=== PATIENT | female | born 1925 | race Caucasian/White ===

== ENCOUNTER 2016-12-19 11:06 | Observation (INO) | payer MEDICARE ==
[2016-12-19] MEDS ORDERED: Zofran 4 MG/2 ML VIAL IV PRN (12:19)
[2016-12-19 12:34] LABS: Mean Cell Volume 99.8 fl (78-100); Platelet Count 771 K/mm3 (150-450); Red Blood Count 4.49 M/mm3 (4.1-5.4); Red Cell Distribution Width 14.9 % (11.5-14.0)
[2016-12-19 12:46] LABS: White Blood Count 32.6 K/mm3 (4.0-10.5)
[2016-12-19] MEDS ORDERED: Sodium Chloride 0.9% 1000 ML 1,000 ML ONE (12:57)
[2016-12-19] MEDS: Zithromax 250 MG TABLET PO SCH (13:02)
[2016-12-19] MEDS: Sodium Chloride 0.9% 1000 ML 1,000 ML IV SCH ×2 (13:03→22:39)
[2016-12-19] MEDS: ROCEPHIN 1 Gm-D5w 50 ml Bag** 1 G/50 ML IVPB IV SCH (13:05)
[2016-12-19 13:08] LABS: ANION GAP 13.4 MEQ/L (5-15); BLOOD UREA NITROGEN 14 mg/dL (9-20); CHLORIDE 103 mEq/L (98-107); Glucose 114 MG/DL (70-110); Potassium 4.1 mEq/L (3.5-5.1); SODIUM 136 mEq/L (136-145)
[2016-12-19] MEDS ORDERED: HYPROMELLOSE OP PRN (13:51)
[2016-12-19] MEDS ORDERED: TYLENOL 325 MG PO PRN (13:51)
[2016-12-19] MEDS ORDERED: DOCUSATE SODIUM 100 MG PO PRN (13:51)
[2016-12-19] MEDS ORDERED: DEXTRAN OP PRN (13:51)
[2016-12-19] MEDS ORDERED: Artificial Tears 15 ML OP PRN (13:56)
[2016-12-19] MEDS ORDERED: Colace 100 MG PO PRN (13:57)
[2016-12-19 14:05] LABS: Basophil 2 % (0.0-1.0); Total Cells Counted 100
[2016-12-19 14:08] LABS: Toxic Granulation 1+
[2016-12-19 14:09] LABS: Platelet Estimate INCREASED (NORMAL)
--- NOTE | 2016-12-19 14:43 | XRAY ---
Exam: AP portable chest film from 1315 hrs. on 12/19/2016. Comparison: AP portable chest film from 04/29/2015. Indication: Cough. Findings: Motion artifact limits the study. The transverse heart size is mildly enlarged. Compared to the prior exam from 04/29/2015, there appears to be some new mild airspace disease at the right lung base. This could reflect pneumonia. The remainder the lung morris appears grossly clear. No pneumothorax is seen. Minimal pleural fluid within the right costophrenic angle cannot be excluded. Evidence of prior vertebroplasty is seen at approximately T12 representing no change. Impression: 1. The study is motion limited. However, I believe there is some mild right basilar airspace disease which could represent pneumonia. Both the right hemidiaphragm and right costophrenic angle appear indistinct. A small amount of concomitant pleural fluid at the right lung base cannot be excluded. 2. Mild cardiomegaly.
[2016-12-19] MEDS: TYLENOL 325 MG PO PRN (17:50)
[2016-12-19] MEDS: Namenda 5 MG PO SCH (23:34)
[2016-12-19] MEDS: NEURONTIN 300 MG PO SCH (23:35)
[2016-12-19] MEDS: Aricept 10 MG PO SCH (23:35)
[2016-12-20 06:04] LABS: Mean Corpuscular Hemoglobin 32.7 pg (26-32); Mean Platelet Volume 10.1 fl (6-9.5); Platelet Count 748 K/mm3 (150-450); Red Blood Count 4.13 M/mm3 (4.1-5.4); Red Cell Distribution Width 14.9 % (11.5-14.0)
[2016-12-20 06:23] LABS: White Blood Count 27.2 K/mm3 (4.0-10.5)
[2016-12-20 06:34] LABS: ALBUMIN 2.4 g/dL (3.4-5.0); ALKALINE PHOSPHATASE 83 U/L (46-116); ANION GAP 10.8 MEQ/L (5-15); BLOOD UREA NITROGEN 10 mg/dL (9-20); CHLORIDE 108 mEq/L (98-107); Carbon Dioxide 24.9 mEq/L (21-32); Glucose 107 MG/DL (70-110); Potassium 3.5 mEq/L (3.5-5.1); SGOT/AST 18 U/L (15-37); SGPT/ALT 21 U/L (12-78); SODIUM 140 mEq/L (136-145); Total Protein 6.8 gm/dL (6.4-8.2)
[2016-12-20] MEDS: Sodium Chloride 0.9% 1000 ML 1,000 ML IV SCH ×2 (08:20→17:38)
[2016-12-20] MEDS: Zestril 20 MG PO SCH (08:22)
[2016-12-20] MEDS: ROCEPHIN 1 Gm-D5w 50 ml Bag** 1 G/50 ML IVPB IV SCH (08:22)
[2016-12-20] MEDS: Zithromax 250 MG TABLET PO SCH (08:23)
[2016-12-20] MEDS: ECOTRIN 81 MG PO SCH (08:23)
[2016-12-20] MEDS ORDERED: FLUZONE HIGH-DOSE 2017-18 SYR IM ONE (10:00)
--- NOTE | 2016-12-20 14:32 | PCM.HP ---
History of Present Illness - Chief Complaint Chief Complaint: pne History of Present Illness: is a 89 year old female pt of Dr. Issa Duffy who came in to the office and saw [facility]OSS yesterday and was admitted directly for pneumia. Her O2 sat at home was 90% on room air. Her daughter, Balbina, is an RN. They took the patient up to see her siblings in [place], [place] last week and she started coughing 4d ago. no fever. Nausea yesterday. Decreased appetite. Cough overnight. Daughter notes when she was admitted yesterday she had her chin to her chest and was drooling. Daughter notes she is much better today. - Review of Systems Constitutional: Weakness, No Fever Respiratory: Cough, Short Of Breath Abdominal/Gastrointestinal: Appetite Changes All Other Systems: Unable due to dementia Medications & Allergies Home Medications: Home Medication List Aspirin [[place] Aspirin] 81 mg PO DAILY 09/03/14 [History Confirmed 12/19/16 ] Acetaminophen 325 mg [Tylenol 325 mg] 650 mg PO Q4HPRN PRN 04/30/15 [ History Confirmed 12/19/16] Dextran 70/Hypromellose [Artificial Tears] 1 each OP Q4HPRN PRN 04/30/15 [ History Confirmed 12/19/16] Docusate Sodium 100 mg PO BID PRN 04/30/15 [History Confirmed 12/19/16] Donepezil HCl [Aricept] 10 mg PO HS 04/30/15 [History Confirmed 12/19/16] Enema Bag, Disposable [Enema Bag] 1 each RC DAILY PRN PRN 04/30/15 [History Confirmed 12/19/16] Ibuprofen 200 mg [Motrin 200 mg] 200 mg PO Q4HPRN PRN 04/30/15 [History Confirmed 12/19/16] Lisinopril 40 mg PO DAILY #0 05/01/15 [Rx Confirmed 12/19/16] Gabapentin [Neurontin] 300 mg PO HS 12/19/16 [History Confirmed 12/19/16] Memantine HCl 5 mg [Namenda 5 MG] 5 mg PO HS 12/19/16 [History Confirmed 12/19/16] Allergies/Adverse Reactions: Allergies Allergy/AdvReac Type Severity Reaction Status Date / Time morphine Allergy Verified 05/25/15 21:03 - Past Medical History Past Medical History: Yes Neurological History: No Pertinent History, Dementia, Peripheral Neuropathy ENT History: Cataracts Cardiac History: High Cholesterol, Hypertension Respiratory History: No Pertinent History Endocrine Medical History: Hypothyroidism Musculoskelatal History: Arthritis, Other GI Medical History: Diverticulitis, Hemorrhoids History: Other Pyscho-Social History: Anxiety Reproductive Disorders: Abnormal Uterine Bleeding Comment: freq UTIs - Female History Are you now?: No - Past Surgical History Past Surgical History: Yes Neuro Surgical History: No Pertinent History Cardiac History: No Pertinent History Respiratory Surgery: No Pertinent History GI Surgical History: Bowel Surgery Genitourinary Surgical Hx: No Pertinent History Musculskeletal Surgical Hx: No Pertinent History, Other Female Surgical History: Hysterectomy Other Surgical History: removed 1 foot of bowel, cataracts removed, Kyphoplasty September 2014 - Social History Smoking Status: Never smoker Exposure to second hand smoke: No Alcohol: None Drug Use: none - Physical Exam Vital Signs: Vital Signs - 24 hr Temp Pulse Resp BP Pulse Ox 12/20/16 13:07 97.8 F 70 20 130/68 96 12/20/16 12:00 20 12/20/16 08:00 18 12/20/16 07:50 97.8 F 80 18 155/68 97 12/20/16 07:44 92 L 12/20/16 04:00 98 F 71 16 166/73 95 12/20/16 00:00 98.2 F 68 20 163/70 95 12/19/16 20:00 98.2 F 69 18 166/73 94 L 12/19/16 16:51 98.3 F 78 24 137/65 93 L 12/19/16 16:00 98.4 F 18 L 18 160/71 96 12/19/16 15:49 18 L 18 96 Oxygen-Last 24 hours O2 Percentage 2 Liters = 28% O2 Percentage 2 Liters = 28% O2 Percentage 2 Liters = 28% O2 Percentage 2 Liters = 28% General Appearance: no apparent distress Neurologic Exam: alert, cooperative, other (pleasantly disoriented) Eye Exam: eyes nml inspection Neck Exam: normal inspection, non-tender, No lymphadenopathy Respiratory Exam: normal breath sounds, lungs clear, No crackles/rales, No rhonchi, No wheezing Cardiovascular Exam: regular rate/rhythm, normal heart sounds, No murmur Gastrointestinal/Abdomen Exam: soft, normal bowel sounds, No tenderness, No distention, No mass Back Exam: normal inspection Extremity Exam: No pedal edema, No swelling Results - Labs Lab/Micro Results: Lab Results-Last 24 Hours 12/20/16 12/20/16 Range/Units 05:20 05:20 WBC 27.2 H* (4.0-10.5) K/mm3 RBC 4.13 (4.1-5.4) M/mm3 Hgb 13.5 (12.0-16.0) gm/dl Hct 41.7 (35-47) % MCV 101.0 H (78-100) fl MCH 32.7 H (26-32) pg MCHC 32.4 (32-36) g/dl RDW 14.9 H (11.5-14.0) % Plt Count 748 H (150-450) K/mm3 MPV 10.1 H (6-9.5) fl Sodium 140 (136-145) mEq/L Potassium 3.5 (3.5-5.1) mEq/L Chloride 108 H (98-107) mEq/L Carbon Dioxide 24.9 (21-32) mEq/L Anion Gap 10.8 (5-15) MEQ/L BUN 10 (9-20) mg/dL Creatinine 0.73 (0.55-1.30) mg/dl Estimated GFR > 60 ML/MIN Glucose 107 (70-110) MG/DL Calcium 8.5 (8.5-10.1) mg/dL Total Bilirubin 0.40 (0.2-1.0) mg/dL AST 18 (15-37) U/L ALT 21 (12-78) U/L Alkaline Phosphatase 83 (46-116) U/L Serum Total Protein 6.8 (6.4-8.2) gm/dL Albumin 2.4 L (3.4-5.0) g/dL - Radiology Impressions Radiology Exams & Impressions: Radiology Procedures Category Date Time Status Portable Chest [CHEST 1 VIEW (PORTABLE)] Routine Exams 12/19/16 12:55 Completed Assessment/Plan (1) Pneumonia Current Visit: Yes Status: Acute Qualifiers: Pneumonia type: due to unspecified organism Laterality: right Lung location: lower lobe of lung Qualified Code(s): J18.1 - Lobar pneumonia, unspecified organism Assessment & Plan: Improving on IV fluids and rocephin and zithromax. She will likely need another 1-2 days of IV antibiotics before discharging home. Her WBC are still elevated about baseline (her normal is 22,000). Code(s): J18.9 - PNEUMONIA, UNSPECIFIED ORGANISM (2) CLL (chronic lymphocytic leukemia) Current Visit: Yes Status: Chronic Code(s): C91.10 - CHRONIC LYMPHOCYTIC LEUK OF B-CELL TYPE NOT ACHIEVE REMIS (3) Hypertension Current Visit: No Status: Acute Qualifiers: Hypertension type: essential hypertension Qualified Code(s): I10 - Essential (primary) hypertension Assessment & Plan: BP somewhat elevated - if too high will give prn meds. Code(s): I10 - ESSENTIAL (PRIMARY) HYPERTENSION
[2016-12-20] MEDS ORDERED: APRESOLINE 20 MG/ML INJ IV PRN (14:34)
[2016-12-20] MEDS ORDERED: Tussionex Pennkinetic Susp PO PRN (14:35)
[2016-12-20] MEDS: TYLENOL 325 MG PO PRN (14:55)
[2016-12-20] MEDS: Namenda 5 MG PO SCH (22:41)
[2016-12-20] MEDS: NEURONTIN 300 MG PO SCH (22:41)
[2016-12-20] MEDS: Aricept 10 MG PO SCH (22:41)
[2016-12-21 06:59] LABS: Mean Cell Volume 102.1 fl (78-100); Mean Platelet Volume 9.9 fl (6-9.5); Platelet Count 742 K/mm3 (150-450); Red Blood Count 3.89 M/mm3 (4.1-5.4); Red Cell Distribution Width 14.9 % (11.5-14.0); White Blood Count 24.9 K/mm3 (4.0-10.5)
[2016-12-21 07:03] LABS: Mean Corpuscular Hemoglobin 33.1 pg (26-32)
[2016-12-21 07:15] LABS: ANION GAP 11.8 MEQ/L (5-15); BLOOD UREA NITROGEN 9 mg/dL (9-20); CHLORIDE 108 mEq/L (98-107); Carbon Dioxide 25.2 mEq/L (21-32); Glucose 90 MG/DL (70-110); Potassium 3.6 mEq/L (3.5-5.1); SODIUM 141 mEq/L (136-145)
[2016-12-21] MEDS: Zestril 20 MG PO SCH (09:38)
[2016-12-21] MEDS: Sodium Chloride 0.9% 1000 ML 1,000 ML IV SCH (09:38)
[2016-12-21] MEDS: ROCEPHIN 1 Gm-D5w 50 ml Bag** 1 G/50 ML IVPB IV SCH (09:38)
[2016-12-21] MEDS: Zithromax 250 MG TABLET PO SCH (09:38)
[2016-12-21] MEDS: ECOTRIN 81 MG PO SCH (09:38)
[2016-12-21 11:10] LABS: BAND 3 % (0.0-2.0); Eosinophil 2 % (0.00-3.0); Total Cells Counted 100
[2016-12-21 11:11] LABS: ANISOCYTOSIS 1+; Platelet Estimate NORMAL (NORMAL); Polychromasia 1+
[2016-12-21] MEDS ORDERED: PROVENTIL 2.5 MG/3 ML NEB IH PRN (11:32)
--- NOTE | 2016-12-21 11:35 | PCM.NOTE ---
Date and Time: 12/21/16 1132 Subjective Assessment: Pt is asking to go home. Daughter at bedside; she notes that pt is still coughing quite a bit and is on 3L NC (not on O2 at home). - Review of Systems Constitutional: No Fever Respiratory: Cough Objective Exam General Appearance: no apparent distress, alert Neurologic Exam: cooperative, disoriented Skin Exam: normal color, warm, dry Respiratory Exam: diminished breath sounds, wheezing (faint expiratory, scattered), other (good air exchange), No crackles/rales, No rhonchi Cardiovascular Exam: regular rate/rhythm, normal heart sounds, No murmur Gastrointestinal/Abdomen Exam: soft, normal bowel sounds, No tenderness, No distention Extremity Exam: No pedal edema, No swelling OBJECTIVE DATA Vital Signs: Vital Signs - 24 hr Temp Pulse Resp BP Pulse Ox 12/21/16 08:00 20 12/21/16 07:42 97.8 F 80 20 128/66 96 12/21/16 04:00 98.3 F 89 18 169/72 94 L 12/21/16 00:00 98.8 F 83 20 180/83 95 12/20/16 20:00 98.5 F 81 18 176/71 92 L 12/20/16 16:47 98.4 F 80 20 150/58 95 12/20/16 13:07 97.8 F 70 20 130/68 96 12/20/16 12:00 20 Oxygen-Last 24 hours O2 Percentage 3 Liters = 32% O2 Percentage 3 Liters = 32% O2 Percentage 3 Liters = 32% Pain Assessment - Last Documented Pain Intensity 0 Pain Scale Used 0-10 Pain Scale Intake and Output: Intake & Output 12/18/16 12/19/16 12/20/16 12/21/16 11:59 11:59 11:59 11:59 Intake Total 2490 2771 Balance 2490 2771 Weight 73.482 kg Lab Results: Lab Results-Last 24 Hours 12/21/16 12/21/16 Range/Units 05:25 05:25 WBC 24.9 H (4.0-10.5) K/mm3 RBC 3.89 L (4.1-5.4) M/mm3 Hgb 12.9 (12.0-16.0) gm/dl Hct 39.7 (35-47) % MCV 102.1 H (78-100) fl MCH 33.1 H (26-32) pg MCHC 32.5 (32-36) g/dl RDW 14.9 H (11.5-14.0) % Plt Count 742 H (150-450) K/mm3 MPV 9.9 H (6-9.5) fl Segmented Neutrophils 86 H (36.0-66.0) % Band Neutrophils 3 H (0.0-2.0) % Lymphocytes (Manual) 2 L (24-44) % Monocytes (Manual) 7 (0.0-12.0) % Eosinophils (Manual) 2 (0.00-3.0) % Differential Comment ABNORMAL Platelet Estimate NORMAL (NORMAL) Polychromasia 1+ Anisocytosis 1+ Sodium 141 (136-145) mEq/L Potassium 3.6 (3.5-5.1) mEq/L Chloride 108 H (98-107) mEq/L Carbon Dioxide 25.2 (21-32) mEq/L Anion Gap 11.8 (5-15) MEQ/L BUN 9 (9-20) mg/dL Creatinine 0.72 (0.55-1.30) mg/dl Estimated GFR > 60 ML/MIN Glucose 90 (70-110) MG/DL Calcium 8.5 (8.5-10.1) mg/dL Radiology Exams: Radiology Procedures Category Date Time Status Portable Chest [CHEST 1 VIEW (PORTABLE)] Routine Exams 12/19/16 12:55 Completed Assessment/Plan (1) Pneumonia Current Visit: Yes Status: Acute Qualifiers: Pneumonia type: due to unspecified organism Laterality: right Lung location: lower lobe of lung Qualified Code(s): J18.1 - Lobar pneumonia, unspecified organism Assessment & Plan: Some improvement, but still on O2. Needs at least one more day on IV antibiotics before discharge to home. Code(s): J18.9 - PNEUMONIA, UNSPECIFIED ORGANISM (2) CLL (chronic lymphocytic leukemia) Current Visit: Yes Status: Chronic Assessment & Plan: WBC nearly back to baseline at 24,900 (baseline around 22,000). Code(s): C91.10 - CHRONIC LYMPHOCYTIC LEUK OF B-CELL TYPE NOT ACHIEVE REMIS (3) Hypertension Current Visit: No Status: Chronic Qualifiers: Hypertension type: essential hypertension Qualified Code(s): I10 - Essential (primary) hypertension Assessment & Plan: has hydralazine prn. BP currently 128/66. Code(s): I10 - ESSENTIAL (PRIMARY) HYPERTENSION
[2016-12-21] MEDS: Aricept 10 MG PO SCH (22:10)
[2016-12-21] MEDS: Namenda 5 MG PO SCH (22:10)
[2016-12-21] MEDS: NEURONTIN 300 MG PO SCH (22:10)
[2016-12-22] MEDS: Sodium Chloride 0.9% 1000 ML 1,000 ML IV SCH (06:23)
[2016-12-22] MEDS: ECOTRIN 81 MG PO SCH (09:27)
[2016-12-22] MEDS: ROCEPHIN 1 Gm-D5w 50 ml Bag** 1 G/50 ML IVPB IV SCH (09:27)
[2016-12-22] MEDS: Zithromax 250 MG TABLET PO SCH (09:27)
[2016-12-22] MEDS: Zestril 20 MG PO SCH (09:27)
--- NOTE | 2016-12-22 12:38 | PCM.DCORD ---
- Discharge Discharge Date: 12/22/16 Disposition: Home, Self-Care Condition: Stable Prescriptions: New Cefdinir [Omnicef] 300 mg PO BID #10 capsule Continue Aspirin [[place] Aspirin] 81 mg PO DAILY Enema Bag, Disposable [Enema Bag] 1 each RC DAILY PRN PRN PRN Reason: Constipation Docusate Sodium 100 mg PO BID PRN PRN Reason: Constipation Dextran 70/Hypromellose [Artificial Tears] 1 each OP Q4HPRN PRN PRN Reason: dry eyes Donepezil HCl [Aricept] 10 mg PO HS Acetaminophen 325 mg [Tylenol 325 mg] 650 mg PO Q4HPRN PRN PRN Reason: Fever Ibuprofen 200 mg [Motrin 200 mg] 200 mg PO Q4HPRN PRN PRN Reason: Pain Lisinopril 40 mg PO DAILY #0 Gabapentin [Neurontin] 300 mg PO HS Memantine HCl 5 mg [Namenda 5 MG] 5 mg PO HS Follow up with: LUCA MENDOZA [Primary Care Provider] - 12/29/16 9:45 am Forms: Patient Portal Information
[2016-12-22 16:09] VITALS: BP 178/80; PULSE 69; O2SAT 92
--- NOTE | 2016-12-23 21:20 | PCM.DS ---
Discharge Summary Date of Admission: 12/19/16 11:06 Date of Discharge: 12/22/16 Admitting Physician: LUCA MENDOZA Primary Care Provider: LUCA MENDOZA Allergies Allergies morphine Allergy (Verified 05/25/15 21:03) Hospital Summary - Hospital Course Hospital Course: she was having increased confusion as well as progressively worsening cough with productive sputum and shortness of breath at home. She suffers from dementia and has 24 hour home caregivers. She presented to [facility] and was found to be hypoxic with evidence of pneumonia. Direct admission revealed pneumonia treated with ceftriaxone and azithromycin. She received azithromycin 500 mg po for 3 days and the ceftriaxone 1 g iv for 3 days. She had improvement in her cough oxygenation and mentation. She was still weak. She continued to require oxygen and has had low O2 in the past at her chronic stable state as well. She was anxious to go home. She has chronically elevated wbc and plts that she was following with hematology but with her progressively worsening dementia has decided to not go for the routine f/u anylonger. will complete the coarse of antibiotics po. - Vitals & Intake/Output Vital Signs: Vital Signs Temperature 97.6 F 12/22/16 16:08 Pulse Rate 69 12/22/16 16:08 Respiratory Rate 20 12/22/16 16:08 Blood Pressure 178/80 12/22/16 16:08 O2 Sat by Pulse Oximetry 92 L 12/22/16 16:08 Oxygen-Last Documented O2 Percentage 2 Liters = 28% Intake & Output: Intake & Output 12/21/16 12/22/16 12/23/16 12/24/16 11:59 11:59 11:59 11:59 Intake Total 2771 1485 240 Balance 2771 1485 240 - Lab Result Diagrams: 12/21/16 05:25 12/21/16 05:25 Lab Results-Last 24 Hrs: Lab Results-Last 24 Hours 12/19/16 Range/Units 12:10 WBC 32.6 H* (4.0-10.5) K/mm3 RBC 4.49 (4.1-5.4) M/mm3 Hgb 14.8 (12.0-16.0) gm/dl Hct 44.8 (35-47) % MCV 99.8 (78-100) fl MCH 33.0 H (26-32) pg MCHC 33.0 (32-36) g/dl RDW 14.9 H (11.5-14.0) % Plt Count 771 H (150-450) K/mm3 MPV 10.0 H (6-9.5) fl Segmented Neutrophils 87 H (36.0-66.0) % Lymphocytes (Manual) 4 L (24-44) % Monocytes (Manual) 7 (0.0-12.0) % Basophils (Manual) 2 H (0.0-1.0) % Differential Comment NORMAL Toxic Granulation 1+ Platelet Estimate INCREASED (NORMAL) Smear Path Review - Procedures and Test Procedures and Tests throughout Hospitalization: Therapy Orders & Screens 12/19/16 12:19 EKG STAT Comment: Diagnosis: pne Oxygen NASAL CANNULA 2 lpm Comment: Diagnosis: pne Respiratory Therapy Consult ROUTINE Comment: Reason For Exam: Diagnosis: pne 12/21/16 14:03 Respiratory Nebulizer UD Comment: Diagnosis: pneumonia 12/22/16 08:28 PT Eval & Treat (MD Order) ROUTINE Evaluate: Yes Treat: Yes Reason for Eval:: weakness home safety eval Diagnosis: pneumonia Qualify for Home Oxygen ROUTINE Comment: Diagnosis: pneumonia Discharge Exam General Appearance: no apparent distress, alert Neurologic Exam: cooperative, No oriented x 3 Skin Exam: warm, dry Ears, Nose, Throat Exam: moist mucous membranes Neck Exam: normal inspection, non-tender, supple Respiratory Exam: other (right basilar rales), No rhonchi, No wheezing Cardiovascular Exam: regular rate/rhythm, murmur Gastrointestinal/Abdomen Exam: soft, normal bowel sounds, No tenderness Extremity Exam: No calf tenderness, No pedal edema Final Diagnosis/Problem List - Final Discharge Diagnosis/Problem (1) Pneumonia Status: Acute (2) CLL (chronic lymphocytic leukemia) Status: Chronic (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 (4) Hypertension Status: Chronic - Discharge Discharge Date: 12/22/16 Disposition: Home, Self-Care Condition: Stable Prescriptions: New Cefdinir [Omnicef] 300 mg PO BID #10 capsule Continue Aspirin [[place] Aspirin] 81 mg PO DAILY Enema Bag, Disposable [Enema Bag] 1 each RC DAILY PRN PRN PRN Reason: Constipation Docusate Sodium 100 mg PO BID PRN PRN Reason: Constipation Dextran 70/Hypromellose [Artificial Tears] 1 each OP Q4HPRN PRN PRN Reason: dry eyes Donepezil HCl [Aricept] 10 mg PO HS Acetaminophen 325 mg [Tylenol 325 mg] 650 mg PO Q4HPRN PRN PRN Reason: Fever Ibuprofen 200 mg [Motrin 200 mg] 200 mg PO Q4HPRN PRN PRN Reason: Pain Lisinopril 40 mg PO DAILY #0 Gabapentin [Neurontin] 300 mg PO HS Memantine HCl 5 mg [Namenda 5 MG] 5 mg PO HS Instructions: Pneumonia -- Adult Additional Instructions: HOME O2 AT 3L NASAL CANNULA AT ALL TIMES Follow up with: LUCA MENDOZA [Primary Care Provider] - 12/29/16 9:45 am Forms: Discharge Instructions, Patient Portal Information
== END 2016-12-22 17:40 | disposition home or self-care (01) ==
LOC: MED SURG 11:06
PROVIDERS: ADMIT Family Medicine; ATTEND Family Medicine
DX: J18.1 Lobar pneumonia, unspecified organism (principal); C91.10 Chronic lymphocytic leukemia of B-cell type not having achieved remission; M47.892 Other spondylosis, cervical region; I10 Essential (primary) hypertension; F03.90 Unspecified dementia, unspecified severity, without behavioral disturbance, psychotic disturbance, mood disturbance, and anxiety; G62.9 Polyneuropathy, unspecified; E03.9 Hypothyroidism, unspecified; M19.90 Unspecified osteoarthritis, unspecified site; F41.9 Anxiety disorder, unspecified; Z87.440 Personal history of urinary (tract) infections
CPT/HCPCS: 36415; 71010; 80048; 80053; 83880; 84134; 85007; 85025; 85027; 93005; 94640; 94760; G0008; G0378; J0696; A9270-GY